=== PATIENT | male | born 1955 | race African-American/Black ===

== ENCOUNTER 2018-07-12 05:57 | Inpatient (IN) | payer MEDICAID ==
[~2018-07-12] VITALS: Ht 170.2 cm; Wt 54.9 kg
[2018-07-12] MEDS ORDERED: SODIUM CHLORIDE 0.9% 1,000 ML IV ONE (06:18)
[2018-07-12] MEDS ORDERED: KETOROLAC 30MG/ML VIAL IV STA (06:18)
[2018-07-12] MEDS ORDERED: MAGNESIUM/ALUMINUM HYDROXIDE/SIMETHICONE 30ML UDC PO STA (06:18)
[2018-07-12] MEDS ORDERED: ONDANSETRON HCL 4MG/2ML INJ IV STA (06:18)
[2018-07-12 07:36] LABS: HEMATOCRIT. 37.7 % (42.0-52.0); HEMOGLOBIN. 12.5 g/dL (14.0-18.0); MEAN CORPUSCULAR HEMOGLOBIN 30.1 pg (28.0-32.0); MEAN CORPUSCULAR VOLUME 90.7 fL (80.0-94.0); MEAN PLATELET VOLUME 6.8 fl (7.4-10.4); PLATELET 528 x1000/uL (130-400); RED BLOOD CELL COUNT 4.16 mill/uL (4.7-6.1); RED CELL DISTRIBUTION WIDTH 16.1 % (11.6-14.6)
[2018-07-12 07:37] LABS: CHLORIDE 93 mEq/L (98-107)
[2018-07-12 08:06] LABS: PLATELET ESTIMATE INCREASED
[2018-07-12] MEDS ORDERED: METOCLOPRAMIDE HCL 10MG/2ML VIAL IV ONE (08:30)
[2018-07-12] MEDS ORDERED: MORPHINE SULFATE 4 MG/ML CPJ (NOT FOR IM USE) IV ONE (08:30)
[2018-07-12] MEDS ORDERED: VANCOMYCIN 1 G PREMIX 200 ML IV ONE (09:00)
[2018-07-12] MEDS ORDERED: PIPERACILLIN/TAZ 3.375G PREMIX 50 ML IV ONE (09:00)
[2018-07-12 10:21] LABS: CLARITY URINE TURBID (CLEAR); COLOR URINE YELLOW (YELLOW); KETONES URINE TRACE (NEGATIVE); LEUKOCYTE ESTERASE URINE 3+ (NEGATIVE); NITRITE URINE NEGATIVE (NEGATIVE); OCCULT BLOOD URINE 2+ (NEGATIVE); PROTEIN URINE 2+ (NEGATIVE); UROBILINOGEN URINE 0.2 E.U./dL (0.2-1.0)
[2018-07-12] MEDS ORDERED: CLONIDINE 0.1MG TABLET PO PRN (11:15)
[2018-07-12] MEDS ORDERED: GUAIFENESIN 200MG/10ML SUGAR FREE UDC PO PRN (11:15)
[2018-07-12] MEDS ORDERED: DOCUSATE SODIUM 100MG CAPSULE PO PRN (11:15)
[2018-07-12] MEDS ORDERED: IPRATROPIUM/ALBUTEROL 0.5-3(2.5)MG/3ML NEB INH PRN (11:15)
[2018-07-12] MEDS ORDERED: ACETAMINOPHEN 325MG TABLET PO PRN (11:15)
[2018-07-12] MEDS ORDERED: MAGNESIUM/ALUMINUM HYDROXIDE/SIMETHICONE 30ML UDC PO PRN (11:15)
[2018-07-12 11:33] LABS: PHOSPHORUS 5.8 mg/dL (2.5-4.9)
[2018-07-12 13:14] VITALS: BP 106/62
[2018-07-12 13:22] VITALS: BP 106/62
[2018-07-12] MEDS: ENOXAPARIN 30MG/0.3ML SYR SUBCUT SCH (15:02)
[2018-07-12] MEDS: SODIUM CHLORIDE 0.9% 1,000 ML IV SCH (15:03)
[2018-07-12 16:00] VITALS: BP 100/70
[2018-07-12 16:08] LABS: CREATINE KINASE 80 IU/L (39-308)
[2018-07-12 16:09] LABS: CREATINE KINASE MB FRACTION < 1.0 ng/mL (0.5-3.6)
[2018-07-12] MEDS: PIPERACILLIN/TAZ 2.25G PREMIX 50 ML IV SCH ×2 (16:34→20:42)
[2018-07-12] MEDS ORDERED: DIATR MEGLU/DIATRIZOATE SOLN 30ML PO SCH (17:45)
[2018-07-12 20:00] VITALS: BP 91/57
[2018-07-12] MEDS: ONDANSETRON HCL 4MG/2ML INJ IV PRN (20:38)
[2018-07-12] MEDS ORDERED: DEXTROSE 50% WATER 50ML SYRINGE IV PRN (21:30)
[2018-07-12] MEDS: INSULIN LISPRO 100 UNITS/ML SUBCUT SCH (23:11)
[2018-07-12] MEDS: BLOOD SUGAR DIAGNOSTIC STRIP TEST SCH (23:11)
[2018-07-12 23:13] LABS: CREATINE KINASE 79 IU/L (39-308)
[2018-07-12 23:14] LABS: CREATINE KINASE MB FRACTION < 1.0 ng/mL (0.5-3.6)
[2018-07-13] VITALS: BP 97/57
[2018-07-13 04:00] VITALS: BP 95/61
[2018-07-13] MEDS: SODIUM CHLORIDE 0.9% 1,000 ML IV SCH ×2 (04:29→16:47)
[2018-07-13] MEDS: PIPERACILLIN/TAZ 2.25G PREMIX 50 ML IV SCH ×3 (05:07→22:19)
[2018-07-13] MEDS: INSULIN LISPRO 100 UNITS/ML SUBCUT SCH ×4 (05:41→23:35)
[2018-07-13] MEDS: BLOOD SUGAR DIAGNOSTIC STRIP TEST SCH ×4 (05:41→23:29)
[2018-07-13 06:09] LABS: HEMOGLOBIN. 9.8 g/dL (14.0-18.0); MEAN CORPUSCULAR HEMOGLOBIN 30.4 pg (28.0-32.0); MEAN CORPUSCULAR VOLUME 89.6 fL (80.0-94.0); MEAN PLATELET VOLUME 6.5 fl (7.4-10.4); PLATELET 399 x1000/uL (130-400); RED BLOOD CELL COUNT 3.24 mill/uL (4.7-6.1); RED CELL DISTRIBUTION WIDTH 15.6 % (11.6-14.6)
[2018-07-13 08:00] VITALS: BP 94/59
[2018-07-13 08:01] LABS: CHLORIDE 100 mEq/L (98-107)
[2018-07-13 08:13] LABS: HDL CHOLESTEROL 17 mg/dL (40-59); LDL CHOLESTEROL 59 mg/dL (5-100)
[2018-07-13] MEDS: ENOXAPARIN 30MG/0.3ML SYR SUBCUT SCH (08:20)
[2018-07-13 10:27] LABS: PLATELET ESTIMATE NORMAL
[2018-07-13] MEDS: CALCIUM CARBONATE 500MG TABLET CHEW PO PRN (11:58)
[2018-07-13 12:00] VITALS: BP 108/67
[2018-07-13 13:00] VITALS: BP 117/78
[2018-07-13 20:00] VITALS: BP 98/64
[2018-07-13 22:12] LABS: TOTAL IRON BINDING CAPACITY 173 ug/dL (250-450)
[2018-07-13] MEDS: BACLOFEN 10MG TABLET PO SCH (23:29)
[2018-07-14] VITALS: BP 97/68
[2018-07-14 04:00] VITALS: BP 102/62
[2018-07-14 06:02] LABS: HEMATOCRIT. 27.9 % (42.0-52.0); HEMOGLOBIN. 9.3 g/dL (14.0-18.0); MEAN CORPUSCULAR VOLUME 90.2 fL (80.0-94.0); MEAN PLATELET VOLUME 6.5 fl (7.4-10.4); PLATELET 362 x1000/uL (130-400); RED BLOOD CELL COUNT 3.09 mill/uL (4.7-6.1); RED CELL DISTRIBUTION WIDTH 15.6 % (11.6-14.6)
[2018-07-14] MEDS: PIPERACILLIN/TAZ 2.25G PREMIX 50 ML IV SCH ×2 (06:13→13:04)
[2018-07-14] MEDS: SODIUM CHLORIDE 0.9% 1,000 ML IV SCH ×2 (06:17→20:32)
[2018-07-14] MEDS: BLOOD SUGAR DIAGNOSTIC STRIP TEST SCH ×4 (06:32→20:42)
[2018-07-14] MEDS: INSULIN LISPRO 100 UNITS/ML SUBCUT SCH ×4 (06:32→20:42)
[2018-07-14 07:32] LABS: CHLORIDE 108 mEq/L (98-107)
[2018-07-14 09:00] VITALS: BP 113/73
[2018-07-14] MEDS ORDERED: POTASSIUM PHOS,M-BASIC-D-BASIC 15 MMOL in DEXT 5% WATER 245 ML IV NR (09:00)
[2018-07-14] MEDS: BACLOFEN 10MG TABLET PO SCH (09:01)
[2018-07-14] MEDS: ENOXAPARIN 30MG/0.3ML SYR SUBCUT SCH (09:02)
[2018-07-14] MEDS: CALCIUM CARBONATE 500MG TABLET CHEW PO PRN ×2 (10:38→18:35)
[2018-07-14 12:00] VITALS: BP 138/80
[2018-07-14 13:05] LABS: PLATELET ESTIMATE NORMAL
[2018-07-14 13:15] LABS: ANTI-NUCLEAR ANTIBODIES DIRECT Negative (Negative)
[2018-07-14] MEDS: OMEPRAZOLE 20MG CAPSULE EXTENDED RELEASE PO SCH ×2 (15:49→20:34)
[2018-07-14 16:00] VITALS: BP 134/87
[2018-07-14 20:00] VITALS: BP 130/83
[2018-07-14] MEDS: ONDANSETRON HCL 4MG/2ML INJ IV PRN (20:33)
[2018-07-14] MEDS: AMPICILLIN 500 MG in SODIUM CHLORIDE 0.9% 50 ML IV SCH (20:34)
[2018-07-14] MEDS: MORPHINE SULFATE 2 MG/ML CPJ (NOT FOR IM USE) IV PRN (20:37)
[2018-07-15] VITALS: BP 122/82
[2018-07-15] MEDS: SODIUM CHLORIDE 0.9% 1,000 ML IV SCH ×3 (02:22→18:25)
[2018-07-15] MEDS: AMPICILLIN 500 MG in SODIUM CHLORIDE 0.9% 50 ML IV SCH ×4 (02:28→21:44)
[2018-07-15] MEDS: MORPHINE SULFATE 2 MG/ML CPJ (NOT FOR IM USE) IV PRN (02:29)
[2018-07-15 04:00] VITALS: BP 122/84
[2018-07-15 06:01] LABS: HEMATOCRIT. 27.7 % (42.0-52.0); HEMOGLOBIN. 9.3 g/dL (14.0-18.0); MEAN CORPUSCULAR HEMOGLOBIN 30.3 pg (28.0-32.0); MEAN CORPUSCULAR VOLUME 90.4 fL (80.0-94.0); MEAN PLATELET VOLUME 6.1 fl (7.4-10.4); PLATELET 353 x1000/uL (130-400); RED BLOOD CELL COUNT 3.06 mill/uL (4.7-6.1); RED CELL DISTRIBUTION WIDTH 15.6 % (11.6-14.6)
[2018-07-15 06:45] LABS: CHLORIDE 107 mEq/L (98-107)
[2018-07-15 06:55] LABS: PHOSPHORUS 1.5 mg/dL (2.5-4.9)
[2018-07-15 08:00] VITALS: BP 130/79
[2018-07-15] MEDS: INSULIN LISPRO 100 UNITS/ML SUBCUT SCH ×4 (08:10→21:00)
[2018-07-15] MEDS: BLOOD SUGAR DIAGNOSTIC STRIP TEST SCH ×4 (08:25→21:00)
[2018-07-15] MEDS: BACLOFEN 10MG TABLET PO SCH ×3 (08:55→18:25)
[2018-07-15] MEDS: OMEPRAZOLE 20MG CAPSULE EXTENDED RELEASE PO SCH ×2 (08:55→21:44)
[2018-07-15] MEDS: ENOXAPARIN 40MG/0.4ML SYR SUBCUT SCH (08:56)
[2018-07-15 10:42] LABS: PLATELET ESTIMATE NORMAL
[2018-07-15 12:00] VITALS: BP 134/86
[2018-07-15 16:00] VITALS: BP 130/87
[2018-07-15 20:00] VITALS: BP 136/91
[2018-07-16] VITALS (7 sets, daily range): BP systolic 126–154; BP diastolic 69–96
[2018-07-16] MEDS: AMPICILLIN 500 MG in SODIUM CHLORIDE 0.9% 50 ML IV SCH ×3 (00:57→15:54)
[2018-07-16] MEDS: SODIUM CHLORIDE 0.9% 1,000 ML IV SCH (04:00)
[2018-07-16 06:12] LABS: HEMATOCRIT. 27.9 % (42.0-52.0); HEMOGLOBIN. 9.4 g/dL (14.0-18.0); MEAN CORPUSCULAR HEMOGLOBIN 30.5 pg (28.0-32.0); MEAN CORPUSCULAR VOLUME 90.5 fL (80.0-94.0); MEAN PLATELET VOLUME 6.7 fl (7.4-10.4); PLATELET 360 x1000/uL (130-400); RED BLOOD CELL COUNT 3.08 mill/uL (4.7-6.1); RED CELL DISTRIBUTION WIDTH 15.2 % (11.6-14.6)
[2018-07-16] MEDS: BLOOD SUGAR DIAGNOSTIC STRIP TEST SCH ×3 (06:36→17:40)
[2018-07-16 07:16] LABS: CHLORIDE 106 mEq/L (98-107)
[2018-07-16] MEDS: INSULIN LISPRO 100 UNITS/ML SUBCUT SCH ×3 (08:10→18:10)
[2018-07-16] MEDS: BACLOFEN 10MG TABLET PO SCH ×3 (08:42→18:27)
[2018-07-16] MEDS: OMEPRAZOLE 20MG CAPSULE EXTENDED RELEASE PO SCH (08:43)
[2018-07-16] MEDS: ENOXAPARIN 40MG/0.4ML SYR SUBCUT SCH (09:24)
[2018-07-16] MEDS ORDERED: NITR-87 MT (15:58)
[2018-07-16] MEDS ORDERED: BACL20TA MT (15:58)
[2018-07-17 17:28] LABS: PLATELET ESTIMATE NORMAL
[2018-07-18 08:19] LABS: COMPLEMENT C3 184 mg/dL (82-167)
== END 2018-07-16 19:57 | disposition home or self-care (01) | DRG 254 ==
LOC: ER 05:57 → 7WST 11:06 → EDBEDREQTM 11:17 → EDBEDREQ 11:17 → ENRESERV 11:49
PROVIDERS: ADMIT Internal Medicine; ATTEND Internal Medicine
DX: R19.00 Intra-abdominal and pelvic swelling, mass and lump, unspecified site (principal); N17.9 Acute kidney failure, unspecified; E44.0 Moderate protein-calorie malnutrition; K56.7 Ileus, unspecified; E83.39 Other disorders of phosphorus metabolism; E83.41 Hypermagnesemia; E87.1 Hypo-osmolality and hyponatremia; D64.9 Anemia, unspecified; N18.9 Chronic kidney disease, unspecified; E86.9 Volume depletion, unspecified; R73.9 Hyperglycemia, unspecified; D47.3 Essential (hemorrhagic) thrombocythemia; R06.6 Hiccough; D72.825 Bandemia; I12.9 Hypertensive chronic kidney disease with stage 1 through stage 4 chronic kidney disease, or unspecified chronic kidney disease; N39.0 Urinary tract infection, site not specified; R33.8 Other retention of urine; N40.1 Benign prostatic hyperplasia with lower urinary tract symptoms; Z90.79 Acquired absence of other genital organ(s); Z87.891 Personal history of nicotine dependence; Z87.440 Personal history of urinary (tract) infections; Z85.51 Personal history of malignant neoplasm of bladder; Z85.46 Personal history of malignant neoplasm of prostate; Z68.1 Body mass index [BMI] 19.9 or less, adult
CPT/HCPCS: 36415; 74018; 74176; 76770; 80048; 80061; 82550; 82553; 82728; 82962; 83036; 83540; 83550; 83605; 83735; 84100; 84153; 84443; 86038; 86160; 86850; 86900; 87077; 87186; 93970; 96374; 97162; 97165; 99285; J0290; J1650; J1885; J2270; J2405; J2543; J2765; J3370; J3490; J7030; J7060; Q9963; G0103